=== PATIENT | male | born 1985 ===

== ENCOUNTER 2017-07-22 11:06 | Emergency (ER) | payer SELFPAY ==
[2017-07-22 11:29] VITALS: BP 140/93
--- NOTE | 2017-07-22 12:52 | UC ---
Upper Extremity HPI - HPI Summary HPI Summary: Patient is a 32-year-old male presenting to the ED with a chief complaint of right posterior calf pain and left forearm pain just distal to the left elbow. He states he was running from some dogs and fell back over a coffee table, hitting the back of his leg and falling directly onto the forearm. Denies any FOOSH injury. He has never injured the area before. Denies any numbness or tingling. Denies any color or temperature changes. There is a small abrasion to the calf just distal to the posterior part of the knee. He has not taken any medication for relief. Accident occurred approximately one hour prior to arrival. Denies hitting his head. - History of Current Complaint Chief Complaint: UCUpperExtremity Stated Complaint: ARM AND LEG INJURY Time Seen by Provider: 07/22/17 12:11 Hx Obtained From: Patient ?: No Onset/Duration: Sudden Onset Severity Initially: Mild Severity Currently: Mild Pain Intensity: 7 Pain Scale Used: 0-10 Numeric Location Of Pain: Is Discrete @ - R posterior calf pain and L forearm pain Aggravating Factor(s): Movement Alleviating Factor(s): Nothing Associated Signs And Symptoms: Positive: Negative Related History: Dominant Hand Right - Risk Factors Non-Orthopedic Risk Factor: Negative DVT Risk Factors: Negative Septic Arthritis Risk Factor: Negative Compartment Syndrome Risk Factors: Pain - Allergies/Home Medications Allergies/Adverse Reactions: Allergies Allergy/AdvReac Type Severity Reaction Status Date / Time No Known Allergies Allergy Verified 07/22/17 11:29 Home Medications: Home Medications NK [No Home Medications Reported] 07/22/17 [History Confirmed 07/22/17] PMH/Surg Hx/FS Hx/Imm Hx Previously Healthy: Yes - Surgical History Surgical History: Yes Surgery Procedure, Year, and Place: hernia repair, hemorrhoids - Family History Known Family History: Positive: Unknown - Social History Occupation: Employed Full-time Lives: With Family Alcohol Use: Occasionally Substance Use Type: None Smoking Status (MU): Never Smoked Tobacco Review of Systems Constitutional: Negative Skin: Other - abrasion to the L forearm Respiratory: Negative Cardiovascular: Negative Motor: Other - NO decreased ROM identified Musculoskeletal: Calf Tenderness Neurological: Negative Psychological: Negative Is Patient Immunocompromised?: No All Other Systems Reviewed And Are Negative: Yes Physical Exam Triage Information Reviewed: Yes Appearance: Well-Appearing, Well-Nourished Vital Signs: Initial Vital Signs Temp 98.3 F 07/22/17 11:22 Pulse 74 07/22/17 11:22 Resp 16 07/22/17 11:22 BP 140/93 07/22/17 11:22 Pulse Ox 98 07/22/17 11:22 Vital Signs Reviewed: Yes Eye Exam: Normal Eyes: Positive: Conjunctiva Clear Neck exam: Normal Neck: Positive: Supple Respiratory Exam: Normal Respiratory: Positive: Chest non-tender, Lungs clear Musculoskeletal: Positive: Strength Intact Neurological Exam: Normal Neurological: Positive: Alert Psychological: Positive: Normal Response To Family Skin: Positive: Other - abrasion to the R forearm Upper Extremity Course/Dx - Course Course Of Treatment: Patient is evaluated in the UC for right posterior calf pain and left forearm pain. He is right-hand dominant. Workmen's Comp. No evidence of fracture seen on xray. abrasion to the R forearm cleansed and wrapped with telfa. Off work x 2 days for adequate recovery of the forearm contusion. He is able to return on 07/26/17. paperwork filled out. He voices no other concerns at this time and is OK for discharge. - Differential Dx/Diagnosis Differential Diagnosis/HQI/PQRI: Contusion Provider Diagnoses: Contusion of the L forearm Discharge - Sign-Out/Discharge Documenting (check all that apply): Discharge - Discharge Plan Condition: Stable Disposition: HOME Patient Education Materials: Arm Pain (ED) Forms: *Work Release Referrals: No Primary Care Phys,NOPCP [Primary Care Provider] - Additional Instructions: Ibuprofen 600mg three times daily Out of work x 2 days Heat to the area for discomfort - Billing Disposition and Condition Condition: STABLE Disposition: HOME
--- NOTE | 2017-07-22 12:59 | RAD ---
HISTORY: Left forearm injury COMPARISONS: None VIEWS: 2, Frontal and lateral views of the left forearm FINDINGS: BONE DENSITY: Normal. BONES: There is no displaced fracture. JOINTS: There is no arthropathy. ALIGNMENT: There is no dislocation. SOFT TISSUES: Unremarkable. OTHER FINDINGS: None. IMPRESSION: NO ACUTE OSSEOUS INJURY. IF SYMPTOMS PERSIST, RECOMMEND REPEAT IMAGING.
== END 2017-07-22 13:18 | disposition home or self-care (01) ==
LOC: UCEAST 11:06
DX: S50.12XA Contusion of left forearm, initial encounter (principal); S80.811A Abrasion, right lower leg, initial encounter; W18.09XA Striking against other object with subsequent fall, initial encounter; Y93.02 Activity, running; Y92.009 Unspecified place in unspecified non-institutional (private) residence as the place of occurrence of the external cause; Y99.0 Civilian activity done for income or pay
CPT/HCPCS: 99211; G0463

== ENCOUNTER 2018-01-11 09:29 | Emergency (ER) | payer OTHER ==
[2018-01-11 09:38] VITALS: BP 130/88
--- NOTE | 2018-01-11 10:05 | UC ---
Lower Extremity/Ankle HPI - HPI Summary HPI Summary: right foot pain x 1 days pain started one day ago at work , was reading the meter and felt a sharp pain in his right foot, cannot recall any injury , pain is 6 out of 10 , sharp and shooting , radiates to his med foot worse with walking , better with rest and ice - History of Current Complaint Chief Complaint: UCLowerExtremity Stated Complaint: R FOOT Time Seen by Provider: 01/11/18 09:52 Hx Obtained From: Patient Onset/Duration: Sudden Onset, Lasting Days - 1, Still Present Severity Initially: Severe Severity Currently: Moderate Pain Intensity: 8 Aggravating Factor(s): Standing, Ambulation Alleviating Factor(s): Rest, Elevation, Ice Able to Bear Weight: Yes - Allergies/Home Medications Allergies/Adverse Reactions: Allergies Allergy/AdvReac Type Severity Reaction Status Date / Time No Known Allergies Allergy Verified 01/11/18 09:38 PMH/Surg Hx/FS Hx/Imm Hx Previously Healthy: Yes - Surgical History Surgical History: Yes Surgery Procedure, Year, and Place: hernia repair, hemorrhoids - Family History Known Family History: Positive: Unknown Negative: Diabetes - Social History Alcohol Use: Occasionally Substance Use Type: None Smoking Status (MU): Never Smoked Tobacco Review of Systems Constitutional: Negative Skin: Negative Eyes: Negative ENT: Negative Respiratory: Negative Cardiovascular: Negative Is Patient Immunocompromised?: No All Other Systems Reviewed And Are Negative: Yes Physical Exam Triage Information Reviewed: Yes Appearance: Well-Appearing, No Pain Distress, Well-Nourished Vital Signs: Initial Vital Signs Temp 98.7 F 01/11/18 09:34 Pulse 80 01/11/18 09:34 Resp 16 01/11/18 09:34 BP 130/88 01/11/18 09:34 Pulse Ox 100 01/11/18 09:34 Vital Signs Reviewed: Yes Eye Exam: Normal Eyes: Positive: Conjunctiva Clear ENT: Positive: Normal ENT inspection, Hearing grossly normal, Pharynx normal Neck: Positive: Supple, Nontender, No Lymphadenopathy Respiratory: Positive: Chest non-tender, Lungs clear, Normal breath sounds Cardiovascular: Positive: RRR, No Murmur, Pulses Normal Musculoskeletal: Positive: Other: - right foot : no swelling, no erythema, + tenderness proximal lateral foot/ hind foot, good ROM , normal strength Lower Extremity Course/Dx - Differential Dx/Diagnosis Provider Diagnoses: right foot pain Discharge - Sign-Out/Discharge Documenting (check all that apply): Patient Departure All imaging exams completed and their final reports reviewed: No Studies - Discharge Plan Condition: Stable Disposition: HOME Patient Education Materials: Metatarsalgia (DC) Forms: *Work Release Referrals: No Primary Care Phys,NOPCP [Primary Care Provider] - If Needed Additional Instructions: no need for xray today soft tissue injury , cont. with rest, ice, elevation , take ibuprofen as needed for pain follow up if not improving in one week - Billing Disposition and Condition Condition: STABLE Disposition: Home
== END 2018-01-11 10:06 | disposition home or self-care (01) ==
LOC: UCEAST 09:29
DX: M79.671 Pain in right foot (principal)
CPT/HCPCS: 99211; G0463